=== PATIENT | female | born 1990 | race Caucasian/White ===

== ENCOUNTER 2022-10-10 13:35 | Emergency (ER) | payer OTHER ==
[2022-10-10 13:43] VITALS: BP 141/92
--- NOTE | 2022-10-10 15:17 | ED Physician Documentation ---
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 Today she was bending over to pick something up and developed severe low back pain radiating to the left hip. There is no weakness, numbness, tingling, saddle anesthesia, fever, incontinenc e. No possibility of . Review of Systems Constitutional: denies: Fever, Chills GI: denies: Abdominal Pain, Nausea, Vomiting : denies: Now [facility] PD PAST MEDICAL HISTORY - Present Medications Home Medications: Ambulatory Orders Medication Instructions Recorded Confirmed tiZANidine [Zanaflex] 4 mg PO Q8H PRN #10 tablet 10/10/22 - Allergies Allergies/Adverse Reactions: Allergies Allergy/AdvReac Type Severity Reaction Status Date / Time acetaminophen Allergy Anaphylaxis Verified 10/10/22 13:43 prednisolone Allergy Hives Verified 10/10/22 13:43 PD ED PE NORMAL - Vitals Vital signs reviewed: Yes - General General: Alert and oriented X 3, No acute distress (But winces a bit with motion) - Abdomen Abdomen: Normal bowel sounds, Soft, Non tender - Back Back: No spinal TTP, Other (Mild muscular tenderness on the left paralumbar musculus.) - Derm Derm: Normal color, Warm and dry - Extremities Extremities: Other (The patient has equal and normal Achilles and patellar reflexes bilaterally. Normal sensation in all areas of the legs. Patient denies saddle anesthesia. Normal strength in flexion-extension at the ankles, knees, and flexion of the hips.) - Neuro Neuro: Alert and oriented X 3, Normal speech Results - Vitals Vitals: Vital Signs - 24 hr 10/10/22 13:39 Temperature 36.4 C L Heart Rate 96 Respiratory 16 Rate Blood Pressure 141/92 H O2 Saturation 100 Oxygen O2 Source Room air PD MEDICAL DECISION MAKING - ED course ED course: This patient has seemingly uncomplicated musculoskeletal back pain. The patient has no "red flags." Specifically denies IV drug use, fevers, incontinence, saddle anesthesia. Spinal epidural abscess was considered, given that the patient has no fever, is not diabetic, has no spinal tenderness, does not use IV drugs, and has no bilateral neurologic symptoms, the diagnosis of spinal epidural abscess is considered exceedingly unlikely. Departure - Departure Disposition: 01 Home, Self Care Clinical Impression: Back muscle spasm Condition: Good Record reviewed to determine appropriate education?: Yes Instructions: ED Spasm Back No Trauma Prescriptions: tiZANidine [Zanaflex] 4 mg PO Q8H PRN #10 tablet PRN Reason: Spasms Comments: No evidence of serious back issue today, just a painful back spasm. Call your doctor to arrange a follow-up appointment, make the next available appointment. In the interim, return anytime if worse or if new symptoms develop. In In addition to CBD and tizanidine you can also take [id number] ibuprofen per package instructions for inflammation/pain.
== END 2022-10-10 15:23 | disposition home or self-care (01) ==
LOC: ED 13:35
DX: M62.830 Muscle spasm of back (principal)
CPT/HCPCS: 99282; 99283